=== PATIENT | female | born 1935 | race Caucasian/White ===

== ENCOUNTER 2018-12-31 18:05 | Inpatient (IN) | payer MEDICARE ==
[~2018-12-31] VITALS: Ht 154.9 cm; Wt 46.3 kg
[2018-12-31] MEDS ORDERED: ASPIRIN81 MG PO (18:10)
[2018-12-31] MEDS ORDERED: AMIODARONE HCL200 MG PO (18:10)
[2018-12-31] MEDS ORDERED: FLUTICASONE PRO16 GM NASAL (18:11)
[2018-12-31] MEDS ORDERED: HYDROXYZINE HCL50 MG PO ×2 (18:12→21:55)
[2018-12-31] MEDS ORDERED: LASIX40 MG PO (18:12)
[2018-12-31] MEDS ORDERED: ELIQUIS2.5 MG PO (18:13)
[2018-12-31] MEDS ORDERED: K-DUR20 MEQ PO (18:13)
[2018-12-31] MEDS ORDERED: CATAPRES0.1 MG PO (18:14)
[2018-12-31] MEDS ORDERED: ALBUTEROL SULF8.5 GM INH (18:15)
[2018-12-31 19:23] VITALS: BP 158/73
[2018-12-31 19:26] LABS: APPEARANCE HAZY (CLEAR); BILIRUBIN NEGATIVE (NEGATIVE); COLOR YELLOW (YELLOW); GLUCOSE NEGATIVE (NEGATIVE); KETONE NEGATIVE (NEGATIVE); NITRITE POSITIVE (NEGATIVE); PROTEIN TRACE mg/dL (NEGATIVE); UROBILINOGEN NORMAL (NORMAL)
[2018-12-31 19:32] LABS: WHITE CELLS - URINE 0-5 /hpf (NEGATIVE)
[2018-12-31 19:33] LABS: BACTERIA FEW /hpf (NEGATIVE); EPITHELIAL CELLS NSEEN /hpf (0-5)
[2018-12-31 19:35] LABS: CKMB 4.5 U/L (0.0-3.6); CREATINE KINASE 282 UL (21-215)
[2018-12-31 19:41] LABS: TROPONIN-I 0.102 ng/mL (0.000-0.060)
--- NOTE | 2018-12-31 19:48 | NUR ---
CRITICAL TROPONIN .102 PER LAB. PREVIOUS TROPONIN .110 @ 5912 TODAY FROM [facility]
--- NOTE | 2018-12-31 20:53 | NUR ---
PT ARRIVED VIA [facility] FROM ER. R SIDE FLACCID. CONTRACTURE NOTED TO R ARM. STAT LOCK PLACED ON GUEVARA. PT ANSWERS YES/NO QUESTION. CALL LIGHT WITHIN REACH.
[2018-12-31 22:01] VITALS: BP 158/73; BMI 19.3
--- NOTE | 2018-12-31 23:24 | NUR ---
ADMISSION ASSESSMENT, HISTORY AND HOME MED LIST COMPLETED BY 2230 HRS. IV TO R HAND WITH NS AT 125CC/HR. IV PATENT. IV TO L WRIST SL. PT ALERT, ABLE TO ANSWER YES/NO QUESTIONS. BRUISE NOTED TO R SHOULDER AND R PELVIS. R ARM CONTRACTURED. MINIMAL MOVEMENT TO R LEG. GUEVARA DRAINING YELLOW URINE. SR PER CM HR 67. VSS. O2 1LNC. LUNGS DIMINISHED IN BASES BILAT. ABD SOFT WITH ACTIVE BS NOTED. PT CURRENTLY RESTING WTIH EYES CLOSED. RESP EVEN AND REGULAR. SR UP X2, CALL LIGHT WITHIN REACH AND BED ALARM ON.
[2019-01-01] VITALS: BP 113/58
--- NOTE | 2019-01-01 00:39 | NUR ---
SCD'S PLACED ON BILAT LOWER EXTREMITIES. RATIONALE FOR SCD'S EXPLAINED TO PT. PT NODDED YES THAT SHE UNDERSTOOD. REPOSITIONED IN BED FOR COMFORT. SR U[X3,CALL LIGHT WITHIN REACH AND BED ALARM ON.
--- NOTE | 2019-01-01 01:24 | NUR ---
PT RESTING WITH EYES CLOSED. RESP EVEN AND REGULAR. SR UP X2, CALL LIGHT WITHIN REACH AND BED ALARM ON.
--- NOTE | 2019-01-01 03:19 | NUR ---
PT RESTING WITH EYES CLOSED. RESP EVEN AND REGULAR. SR UP X2, CALL LIGHT WITHIN REACH AND BED ALARM ON.
[2019-01-01 04:00] VITALS: BP 137/71
--- NOTE | 2019-01-01 04:10 | NUR ---
PT SPILLED HER WATER IN THE BED. BED LINENS CHANGED. PT TOLERATED ACTIVITY WELL. SR UP X2, CALL LIGHT WITHIN REACH AND BED AALRM ON.
[2019-01-01 05:33] LABS: BASOPHILS 0.8 % (0-2); EOSINOPHILS 2.2 % (0-7); HEMATOCRIT 43.9 % (36.0-48.0); HEMOGLOBIN 13.5 g/dL (12-16); IMMATURE GRANULOCYTES 0.3 % (0-5); LYMPHOCYTES 15.4 % (15-50); MCH 28.5 pg (26.0-34.0); MCHC 30.8 g/dL (31.0-37.0); MCV 92.8 fL (80.0-100.0); MEAN PLATELET VOLUME 10.5 fL (7.4-10.4); MONOCYTES 10.5 % (2-11); NEUTROPHILS 70.8 % (40-80); PLATELET COUNT 328 10x3/uL (130-400); RBC 4.73 10x6/uL (4.00-5.40); RDW 15.8 % (11.5-14.5); WBC 9.9 10x3/uL (4.8-10.8)
[2019-01-01 06:08] LABS: ALBUMIN 2.6 g/dL (3.4-5.0); ALKALINE PHOSPHATASE 80 U/L (46-116); ALT (SGPT) 19 U/L (10-68); BILIRUBIN - TOTAL 0.64 mg/dL (0.2-1.3); CALC OSMOLALITY 294 mosm/kg (275-300); CALCIUM 8.4 mg/dL (8.5-10.1); CHLORIDE - SERUM 112 mmol/L (98-107); CKMB 5.1 U/L (0.0-3.6); CREATINE KINASE 239 UL (21-215); CREATININE - SERUM 0.9 mg/dL (0.6-1.3); GLUCOSE 82 mg/dL (74-106); POTASSIUM - SERUM 3.9 mmol/L (3.5-5.1); PROTEIN - SERUM 5.9 g/dL (6.4-8.2); SODIUM 145 mmol/L (136-145); UREA NITROGEN 33 mg/dL (7-18); eGFR NON AFRICAN AMERICAN 63 mL/min (90-120)
[2019-01-01 06:10] LABS: TROPONIN-I 0.102 ng/mL (0.000-0.060)
--- NOTE | 2019-01-01 06:17 | NUR ---
VS THROUGHOUT NIGHT. SR PER CM. PT DENIED ANY DISCOMFORT. NEEDS MET; WILL CONTINUE TO MONITOR.
--- NOTE | 2019-01-01 07:00 | NUR ---
RECEIVED REPORT. BEDSIDE SHIFT REPORT COMPLETE. ASSUMED CARE OF PATIENT. RESTING IN BED WITH EYES OPEN. CALL LIGHT WITHIN REACH. PATIENT HAS REMOVED SCDs AND STAT LOCK. GUEVARA CATHETER PATENT, ADMITTED WITH GUEVARA FROM [place]. NO DISTRESS. PATIENT STATES SHE IS NOT PULLING OR REMOVING ITEMS. NO DISTRESS. NPO UNTIL CARDIOLOGY HAS EVALUATED PATIENT.
[2019-01-01 09:00] VITALS: BP 121/68
--- NOTE | 2019-01-01 09:00 | NUR ---
RESTING IN BED, CALL LIGHT WITHIN REACH. COMPLETE BED CHANGE PROVIDED. TURNED AND REPOSITIONED. NO DISTRESS.
--- NOTE | 2019-01-01 11:59 | NUR ---
PERSON TO NOTIFY - RANI TORRES IS PATIENTS DAUGHTER. SHE LIVES IN [facility]. [phone]. RANI CALLED BECAUSE SHE COULD NOT GET HER BROTHER OR SISTER, WHICH ARE LISTED ON THE FACESHEET. SHE STATES THAT HER SISTER HAS A LEARNING DISABILITY AND DOES NOT TURN HER PHONE ON MOST OF THE TIME. THANKED RANI FOR CALLING AND UPDATE GIVEN TO RANI AFTER OBTAINING VERBAL CONSENT FROM PATIENT.
[2019-01-01 12:00] VITALS: BP 118/54
--- NOTE | 2019-01-01 12:50 | NUR ---
PERSON TO ALSO NOTIFY, LOUIS DOYLE, PATIENT SON - [phone].
--- NOTE | 2019-01-01 15:04 | NUR ---
3RD COMPLETE BED CHANGE THIS SHIFT COMPLETED AT THIS TIME. PATIENT RESTING IN BED WITH EYES OPEN, RESP EVEN AND UNLABORED. NO DISTRESS.
--- NOTE | 2019-01-01 17:53 | NUR ---
PATIENT FOUND WITH WHOLE MOUTH STUFF FULL OF HAMBERGER AND HAMBER BUN PARTIALLY CHEWED. AMOUNT ROSA OUT OF PATIENT MOUTH COMPLETELY OVER FILLED THIS WRITERS CUPPED PALM OF HAND. INFORMED CHARGE NURSE THAT PATIENT CANNOT NOT BE LEFT UNATTENDED AT MEALS, RISK OF ASPRIATION OR CHOKING. THIS GOLF TECHNICIAN ASSISTED PATIENT WITH PM MEAL AND NOW PATIENT DOES NOT WANT TO EAT THE SMALL PIECES OF FOOD THAT HAVE BEEN PREPARED AND CUT FOR HER. COMMINICATION IS CHALLENGING DUE TO S/P CVA. PATIENT DOES NOT PROVIDE ANSWERS TO MOST QUESTIONS ASKED, JUST LOOKS AT THIS GOLF TECHNICIAN AND THE QUESTIONS THAT SHE DOES ANSWER AT TIMES ARE YES AND NO. SPEECH EVALUATION ORDERED.
[2019-01-01 18:11] VITALS: BP 146/78
--- NOTE | 2019-01-01 19:22 | NUR ---
INITIAL ROUNDS COMPLETED. NO DISTRESS NOTED. SR UP X2, CALL LIGHT WITHIN REACH AND BED ALARM ON.
[2019-01-01 20:00] VITALS: BP 155/83
--- NOTE | 2019-01-01 22:49 | NUR ---
ASSESSMENT COMPLETED AT 1950 HRS. VSS. SR PER SM HR 76. PT ALERT, ABLE TO ANSWER YES/NO QUESTIONS ONLY. POOR ATENTION SPAN. FOLLOWS COMMANDS INTERMITTENTLY. IV TO L WRIST OCCLUSED. DC'D WITH CATHETER INTACT. IV TO R HAND WITH NS AT 75CC/HR. IV PATENT. PT WILL NOT WEAR O2. SCD'S PLACED BACK ON PT. R ARM CONTRACTURED. GROSS MOVEMENT OF R LEG ONLY. BRUISE NOTED TO R SHOULDER AND R PELVIC AREA. SCD'S OFF. PLACED BACK ON PT. GUEVARA DRAINING YELLOW URINE. STAT LOCK OFF. NEW STAT LOCK PLACED. BACK IN ROOM FOR PM MEDS. SCD'S OFF AND SAT LOCK REMOVED BY PT. PM MEDS GIVEN CRUSHED IN CHOCOLATE PUDDING. PT PLACED IN HIGH FOWLERS AND MEDS GIVEN IN SMALL BITES. PT SWALLOWED WELL. 240CC OF APPLE JUICE GIVEN VIA STRAW. PT SWALLOWED WITHOUT DIFFICULTY. REPOSITONED IN BED FOR COMFORT. SR UP X2, CALL LIGHT WITHIN REACH AND BED ALARM ON.
[2019-01-02] VITALS: BP 121/61
--- NOTE | 2019-01-02 00:37 | NUR ---
PT TOOK CLOTHES OFF. GOWN PLACED BACK ON PT. COVERED WITH SHEET AND BLANKET. CALL LIGHT WITHIN REACH AND DOOR OPEN.
--- NOTE | 2019-01-02 01:50 | NUR ---
PT REPOSITIONED IN BED FOR COMFORT. SR UP X2, CALL LIGHT WITHIN REACH.
--- NOTE | 2019-01-02 03:47 | NUR ---
PT REPOSITONED IN BED FOR COMFORT. PT DRANK APPROX 120CC OF WATER AT THAT TIME. SR UPX2, CALL LIGHT WITHIN REACH.
--- NOTE | 2019-01-02 03:57 | NUR ---
I have reviewed this patient and I concur with the Shift Assessment completed by the Licensed Practical Nurse today this shift.
[2019-01-02 04:00] VITALS: BP 149/79
--- NOTE | 2019-01-02 05:56 | NUR ---
VSS THROUGHOUT NIGHT. SR PER CM. PT DISROBED X4 DURING SHIFT. REPOSITIONED IN BED NUMEROUS TIMES. NEEDS MET; WILL CONTINUE TO MONITOR.
--- NOTE | 2019-01-02 07:34 | NUR ---
REPORT RECEIVED FROM ENGLISH FACULTY MEMBER AND PATIENT CARE ASSUMED. PATIENT LAYING IN BED WITH EYES CLOSED AND BREATHING EVENLY. VSS. WILL CONTINUE WITH PLAN OF CARE. SR UP X 2 BED IN LOW POSITION AND CALL LIGHT IN REACH.
--- NOTE | 2019-01-02 09:29 | CN ---
PATIENT NAME:SALIMA DAS MEDICAL RECORD: [id number] : 31 LOCATION:. D.2125 ADMIT DATE: 12/31/18 ACCOUNT: [id number] CONSULTING PHYSICIAN: HELEN SANTAMAIRA MD REFERRING PHYSICIAN: EVELYNE RUGGIERO MD DATE OF CONSULTATION: 01/01/2019 CARDIOLOGY CONSULTATION DIAGNOSES: 1. Syncope. 2. Paroxysmal atrial fibrillation. 3. Non-Q-wave myocardial infarction, elevated troponin. 4. Past history of CVA. HISTORY OF PRESENT ILLNESS: Mrs. Das had an unwitnessed fall. She was found down at her care home. She was transferred to [facility] where she had an episode of a tachycardia at 150 beats per minute. This was associated with hypotension requiring emergent cardioversion. She has not had any further dysrhythmias. Her troponin is mildly elevated. She is nonverbal due to a past CVA, making her history difficult. It appears she does have a history of dysrhythmia and atrial fibrillation that she is on amiodarone 200 mg every day as well as Eliquis. She denies any chest pain or chest discomfort at this time. She has not had her amiodarone since yesterday. PHYSICAL EXAMINATION: CONSTITUTIONAL/GENERAL APPEARANCE: Well nourished, well developed, appears stated age. EYES: Lids and conjunctivae noninjected. No discharge. No pallor. ENT: Lips within normal limit. No cyanosis. No pallor. NECK: Carotid arteries, bilateral normal upstroke. No bruits. No thrills. No jugular venous pressure or distention. CERVICAL LYMPH NODES: Nontender. Nonenlarged. THYROID: Not enlarged. No nodules. CARDIOVASCULAR: Precordial exam, nondisplaced. No heaves or pericardial thrills. Rate and rhythm, regular. Heart sounds, normal S1, normal S2. No S3, no gallop, no rub. Systolic murmur, not heard. Diastolic murmur, not heard. RESPIRATORY: Respiratory effort, unlabored. Normal curvature. No thoracic deformity. No chest wall tenderness. Percussion, resonant. Auscultation, clear. No wheezes, no rales, no rhonchi. ABDOMEN: Soft, nondistended, nontender. No abdominal pain, no vomiting and normal appetite. MUSCULOSKELETAL: No joint tenderness, normal gait, normal tone. SKIN: Warm and dry. OVERALL IMPRESSION: Tachyarrhythmia most likely 2:1 atrial flutter, this was 150 beats per minute, most likely this is the etiology of her fall and syncope as well. We will increase the amiodarone to 200 mg b.i.d., get an echocardiogram to evaluate her overall LV function. At this time, no other cardiac workup or treatment will be necessary. TRANSINT:[id number] Voice Confirmation ID: [id number] DOCUMENT ID: [id number] CONSULT REPORT [id number] SALIMA DAS, HELEN GIBSON at 0929 CC: [id number] DICTATION DATE: 01/01/19 1038 CAPITAL CAMPAIGN FUNDRAISER: 01/01/19 1054 ADM IN [facility] [address] [place] [address]
[2019-01-02 11:13] VITALS: BP 129/60
[2019-01-02 12:26] LABS: ANION GAP 11.7 mmol/L (8-16); CALCIUM 8.5 mg/dL (8.5-10.1); CARBON DIOXIDE 28.9 mmol/L (21.0-32.0); POTASSIUM - SERUM 3.6 mmol/L (3.5-5.1)
[2019-01-02 12:29] LABS: BASOPHILS 0.8 % (0-2); EOSINOPHILS 2.1 % (0-7); HEMOGLOBIN 14.7 g/dL (12-16); IMMATURE GRANULOCYTES 0.2 % (0-5); LYMPHOCYTES 16.1 % (15-50); MCH 28.9 pg (26.0-34.0); MEAN PLATELET VOLUME 10.2 fL (7.4-10.4); MONOCYTES 6.8 % (2-11); PLATELET COUNT 330 10x3/uL (130-400); RBC 5.09 10x6/uL (4.00-5.40); RDW 15.1 % (11.5-14.5); WBC 9.2 10x3/uL (4.8-10.8)
[2019-01-02 12:46] LABS: MCV 90.4 fL (80.0-100.0)
--- NOTE | 2019-01-02 14:03 | NUR ---
PATIENT IS UNCHANGED. PATIENT LAYING IN BED WITH HOB 20 DEGREES. PATIENT IS AWAKE. PATIENT IS CALM AND BREATHING EVENLY . VSS. PATIENT APPEARS IN NO ACUTE DISTRESS. WILL CONTINUE TO MONITOR. SR UP X 2 BED IN LOW POSITION AND CALL LIGHT IN REACH.
[2019-01-02 14:57] VITALS: BP 155/73
[2019-01-02 15:01] VITALS: Ht 154.9 cm; Wt 46.3 kg
[2019-01-02 17:33] VITALS: BP 129/80
--- NOTE | 2019-01-02 19:59 | NUR ---
RECEIVED BEDSIDE REPORT. PATIENT IS RESTING COMFORTABLY IN BED. RESPIRATIONS ARE EVEN AND UNLABORED. NO S/S OF DISTRESS. NO C/O PAIN. CALL LIGHT WITHIN REACH. WILL CPOC.
[2019-01-02 20:34] VITALS: BP 152/87
--- NOTE | 2019-01-02 21:45 | NUR ---
PT APPEARS CONFUSED. HELP ADJUST PT IN BED. PROVIDED PT WITH FRESH LINEN. EMPTIED PT'S GUEVARA, WITH OUTPUT [id number]. PT HAVING HARD TIME SWALLOWING. MEDS CRUSHED AND ADMINITERED. PT DENIES ANY FURTHER NEEDS AT THIS TIME. CL IN REACH, BED IN LOW, SR UP X2, BED ALARM ON.
[2019-01-03 01:10] VITALS: BP 132/79
[2019-01-03 05:58] VITALS: BP 131/76
--- NOTE | 2019-01-03 07:26 | NUR ---
REPORT RECEIVED FROM CORRECTIONAL CASEWORK SPECIALIST AND PATIENT CARE ASSUMED.PATIENT LAYING IN BED ON BACK AWAKE . PATIENT IS ASPHASIC. PATIENT IS STABLE AND UNCHANGED AND VSS. WILL CONTINUE WITH PLAN OF CARE. SR UP X 2 BED IN LOW POSITION AND CALL LIGHT IN REACH.
[2019-01-03 09:04] VITALS: BP 120/70
--- NOTE | 2019-01-03 10:09 | NUR ---
PATIENT AWAKE AND APHAGIC LAYING IN RT SIDE. PER GAS APPLIANCE INSTALLER, PATIENT HAS HAD BATH AND COMPLETE LINEN CHANGE. SON CALLED AND THIS NURSE ANSWERED QUESTIONS TO SON SATISFACTION. WILL CONTINUE TO MONITOR PATIENT. SR UP X 2 BED IN LOW POSITION AND CALL LIGHT IN REACH.
[2019-01-03 12:25] VITALS: BP 145/86
[2019-01-03] MEDS ORDERED: OMNICEF300 MG PO (12:59)
--- NOTE | 2019-01-03 14:18 | MORECARE ---
CASE MANAGEMENT DISCHARGE SUMMARY PATIENT: SALIMA DAS UNIT: [id number] ADM DATE: 12/31/18 AGE: 83 : 33 SEX: F ROOM/BED: D.0638 AUTHOR: MIK,DOC PHYSICIAN: REFERRING PHYSICIAN: EVELYNE RUGGIERO MD DATE OF SERVICE: 01/03/19 Discharge Plan Patient Name: SALIMA DAS Facility: [facility]:[place] : 1935 Planned Disposition: Nursing Facility [facility] Cert Anticipated Discharge Date: 01/03/19 Discharge Date: Expected LOS: 3 Initial Reviewer: [id number] Initial Review Date: 01/03/2019 Generated: 01/03/19 3:17 pm DCPIA - Discharge Planning Initial Assessment Updated by PALMA: Clive Reese on 01/03/19 2:12 pm * Is the patient Alert and Oriented? Yes * How many steps to enter\exit or inside your home? NONE * PCP DR. FRASER * [facility] * Preadmission Environment [facility] * Facility Name [facility] * ADLs Total Dependent * Equipment Other * Other Equipment ALL MEDICAL EQUIPMENT PROVIDED BY FACILITY * List name and contact numbers for known caregivers / representatives who currently or will assist patient after discharge: IMELDA CALVERT, * Verbal permission to speak to the caregivers and representatives has been obtained from the patient. N/A * Community resources currently utilized None * Please name any agencies selected above. NONE * Additional services required to return to the preadmission environment? No * Can the patient safely return to the preadmission environment? Yes * Has this patient been hospitalized within the prior 30 days at any hospital? No External Providers External Provider: [facility] [place] Next Contact Date: 01/03/2019 Service Request Date: Service Type: Resolution: Reviewer: Comments: Coverage Notice Reviewer: [id number] - Clive Reese Notice Issued Date-Time: 01/03/2019 9:50 Notice Type: IM Discharge Notice Notice Delivered To: Patient Relationship to Patient: Tin Roofer Name: Delivery Method: HAND - Hand Delivered Claudia Days: Prior Verbal Notification: Recipient Understood Notice: Yes Recipient Signature: Med Rec Note Co-signed by Attending: Coverage Notice Comment: REFUSED TO SIGN, REPORTS ABILITY TO SIGN Reviewer: [id number] Jennifer Reese Notice Issued Date-Time: 01/03/2019 9:50 Notice Type: Patient Choice Letter Notice Delivered To: Patient Relationship to Patient: Tin Roofer Name: Delivery Method: HAND - Hand Delivered Claudia Days: Prior Verbal Notification: Recipient Understood Notice: Yes Recipient Signature: Med Rec Note Co-signed by Attending: Coverage Notice Comment: REFUSED TO SIGN CHOICE FOR [facility]. REPORTS WANTING TO RETURN THERE. Patient Name: SALIMA DAS Page [phone] at 1418 All edits/amendments must be made on the electronic document DICTATION DATE: 01/03/191416 SECURITY PUBLIC SAFETY OFFICER: GIOVANNA 01/03/191416 RPT#: [id number] DC DATE: STATUS: ADM IN [facility] [address] [place] [address] END OF REPORT
--- NOTE | 2019-01-03 14:27 | MORECARE ---
CASE MANAGEMENT DISCHARGE SUMMARY PATIENT: SALIMA DAS UNIT: [id number] ADM DATE: 12/31/18 AGE: 83 : 33 SEX: F ROOM/BED: D.5920 AUTHOR: MIK,DOC PHYSICIAN: REFERRING PHYSICIAN: EVELYNE RUGGIERO MD DATE OF SERVICE: 01/03/19 Discharge Plan Patient Name: SALIMA DAS Facility: [facility]:[place] : 1935 Planned Disposition: Nursing Facility [facility] Cert Anticipated Discharge Date: 01/03/19 Discharge Date: Expected LOS: 3 Initial Reviewer: [email or web address] Initial Review Date: 01/03/2019 Generated: 01/03/19 3:26 pm Comments DCP- Discharge Planning Updated by [email or web address]: Clive Reese on 01/03/19 1:[address] Patient Name: SALIMA DAS Encounter No: [id number] : 1935 Primary Insurance: MEDICARE A & B Anticipated DC Date: 01-03-2019 Planned Disposition: Nursing Facility [facility] Cert External Planned Provider: [facility] DCP follow-up note: CM SPOKE TO PT IN ROOM REGARDING DISCHARGE PLANNING AND NEEDS. PT REPORTS LIVING AT [facility]. PT DOES NOT KNOW HOW LONG SHE HAS BEEN THERE STATING "LONG TIME". PT STATES WILL RETURN THERE AT DISCHARGE. PT STATES SHE DOES NOT GET OUT OF BED AT THE PRISON. PT REPORTS THERE IS NO FAMIILY TO INFORM OF HER RETURN. CM PROVIDED AND DISCUSSED IMPORTANT MESSAGE FROM MEDICARE AND [facility] FOR [facility] LETTER. PT STATES SHE WILL SIGN BOTH AND WHEN PRESENTED WITH THEM FOR SIGNAUTURE SHE DID NOT MOVE. PT STATES "CAN'T". CM CALLED [facility], LISTED SON AND EMERGENCY CONTACT, , THERE WAS NO ANSWER AND NO VOICE MAIL SET UP. THERE WERE NO OTHER EMERGENCY CONTACT NUMBERS TO CALL. CM RECEIVED DISCHARGE ORDER, NOTIFIED [facility], . KRISTEN INFORMED CM THAT PT WILL RETURN TO MEDICARE SKILLED BED. CM FAXED REFERRAL AND DISCHARGE INFORMATION TO [facility] AT [phone]. NURSE REPORT TO BE CALLED TO [facility] AT [phone]. PT TO TRANSPORT VIA AMBULANCE. Clive Reese, CASE MANAGEMENT DCPIA - Discharge Planning Initial Assessment Updated by [id number]: Clive Reese on 01/03/19 2:12 pm * Is the patient Alert and Oriented? Yes * How many steps to enter\\exit or inside your home? NONE * PCP DR. FRASER * [facility] * Preadmission Environment [facility] * Facility Name [facility] * ADLs Total Dependent * Equipment Other * Other Equipment ALL MEDICAL EQUIPMENT PROVIDED BY FACILITY * List name and contact numbers for known caregivers / representatives who currently or will assist patient after discharge: IMELDA CALVERT, * Verbal permission to speak to the caregivers and representatives has been obtained from the patient. N/A * Community resources currently utilized None * Please name any agencies selected above. NONE * Additional services required to return to the preadmission environment? No * Can the patient safely return to the preadmission environment? Yes * Has this patient been hospitalized within the prior 30 days at any hospital? No Coverage Notice Reviewer: [id number] Jennifer Reese Notice Issued Date-Time: 01/03/2019 9:50 Notice Type: IM Discharge Notice Notice Delivered To: Patient Relationship to Patient: Academic Affairs Vice President Name: Delivery Method: HAND - Hand Delivered Claudia Days: Prior Verbal Notification: Recipient Understood Notice: Yes Recipient Signature: Med Rec Note Co-signed by Attending: Coverage Notice Comment: REFUSED TO SIGN, REPORTS ABILITY TO SIGN Reviewer: [id number] Reese Notice Issued Date-Time: 01/03/2019 9:50 Notice Type: Patient Choice Letter Notice Delivered To: Patient Relationship to Patient: Academic Affairs Vice President Name: Delivery Method: HAND - Hand Delivered Claudia Days: Prior Verbal Notification: Recipient Understood Notice: Yes Recipient Signature: Med Rec Note Co-signed by Attending: Coverage Notice Comment: REFUSED TO SIGN CHOICE FOR [facility]. REPORTS WANTING TO RETURN THERE. Last DP export: 01/03/19 1:18 Patient Name: SALIMA DAS Page [phone] at 1427 All edits/amendments must be made on the electronic document DICTATION DATE: 01/03/19 142 AIRPLANE FIRST OFFICER: GIOVANNA 01/03/19 142 RPT#: [id number] DC DATE: STATUS: ADM IN [facility] [address] [place] [place] [address] END OF REPORT
--- NOTE | 2019-01-03 15:13 | NUR ---
ORDER RECEIVED FOR DC. WRITTEN AND VERBAL INSTRUCTIONS GIVEN TO PATIENT . PATIENT UNABLE TO VERBALIZE UNDERSTANDING AND PATIENT UNABLE TO SIGN PAPERWORK. REPORT CALLED TO [facility] AND SPOKE WITH TIAN LEUNG. CONTACTED [facility] AND SHOULD BE HERE IN ABOUT ONE HOUR. PATIENT IS STABLE AND VSS. WILL CONTINUE TO MONITOR. SR UP X 2 BED IN LOW POSITION AND CALL LIGHT IN REACH.
--- NOTE | 2019-01-03 15:17 | NUR ---
PATIENT HAD LARGE BM. PATIENT HAS BM ON HER HANDS AND IS SPREADING FECAL MATERIAL ON HERSELF AND THE BED. PATIENT CLEANED THOROUGHLY AND COMPLETE LINEN CHANGE DONE. IV DCD WITHOUT DIFFICULTY WITH ENTIRE CATHETER INTACT. AWAITING AMBULANCE FOR TRANSFER. SR UP X 2 BED IN LOW POSITION AND CALL LIGHT IN REACH.
--- NOTE | 2019-01-03 16:37 | NUR ---
PATIENT IS STABLE AND VSS. [facility] HERE FOR TRANSPORT. PATIENT TRANSFERRED TO [facility] EASILY AND PATIENT TO AMBULANCE VIA AMBULANCE PERSONNEL .
--- NOTE | 2019-01-09 17:02 | EC ---
PATIENT:SALIMA DAS DATE OF SERVICE: 12/31/18 SEX: F MEDICAL RECORD: [id number] DATE OF : [birth year] LOCATION:D.M2 D.212 AGE OF PATIENT: 83 ADMISSION DATE: 12/31/18 REFERRING PHYSICIAN: INTERPRETING PHYSICIAN: HELEN ACEVES MD ECHOCARDIOGRAM REPORT ECHO CHARGES 4 ECHO COMPLETE Date: 01/01/19 CLINICAL DIAGNOSIS: SVT ECHOCARDIOGRAPHIC MEASUREMENTS (adult normal given) AC root (d.<3.7cm) 3.2 cm LV Septum d (<1.2 cm> 1.4 cm Valve Excursion 0.4 cm LV Septum (systole) 1.9 cm Left Atria (s.<4.0cm> 2.5 cm LVPW d(<1.2cm) 1.4 cm RV (d.<2.3cm) 1.7 cm LVPW (sytole) 1.9 cm LV diastole(<5.6CM) 4.0 cm MV E-F(>70mm/sec) cm LV systole 1.8 cm LVOT Diameter 1.7 cm MV exc.(>10mm) cm Est.ejection fraction (50-75%) % DOPPLER: LVIT cm/sec A 118 cm/sec E 66.0 cm/sec LA cm/sec RVSP 42.0 mmHg LVOT 109 cm/sec AOP1/2T 608.0m/s Asc. Ao 461 cm/sec RVOT 92.0 cm/sec RA cm/sec PA 117 cm/sec AV Gradient Peak 85.0 mmHg AV Mean 44.0 mmHg AV Area 0.6 cm MV Gradient Peak 5.6 mmHg MV Mean 2.0 mmHg MV Area cm COMMENTS: Field Rep: 1 DESI PORTILLOOE Industrial Conveyor Belt Repairer: 1 Dr. Aceves TAPE# PACS Pericardial Effusion N DATE OF SERVICE: ECHOCARDIOGRAM FINDINGS: 1. Left ventricular chamber size is within normal limits. Left ventricular systolic function is normal at 55%. 2. Left atrium, right atrium and right ventricular chamber sizes are within normal limits. 3. Valvular structures; aortic valve demonstrates severe calcific aortic ECHOCARDIOGRAM REPORT [id number] SALIMA DAS stenosis, valve area calculates to 0.6 cm-squared. There is gradient of 85-mm across the valve. The remaining valvular structures have normal structure and motion. 4. Doppler interrogation elsewise reveals moderate aortic insufficiency, mild mitral regurgitation, mild tricuspid regurgitation, no other valvular insufficiency or stenosis. Pulmonary systolic pressure is estimated at 42 mmHg. TRANSINT:[id number] Voice Confirmation ID: [id number] DOCUMENT ID: [id number] HELEN ACEVES MD at 1702 CC: [id number] DICTATION DATE: 01/02/19 1056 SUPERVISOR MOLDING: 01/02/19 1111 DIS IN 01/03/19 [place] [address] [place] [address]
== END 2019-01-03 16:39 | DRG 281 ==
LOC: D.ER 18:05 → D.M2 19:26
PROVIDERS: Family Medicine; Family Medicine Adult Medicine; ADMIT Internal Medicine Nephrology; ATTEND Internal Medicine Nephrology
DX: I21.4 Non-ST elevation (NSTEMI) myocardial infarction (principal); N39.0 Urinary tract infection, site not specified; N17.9 Acute kidney failure, unspecified; E44.0 Moderate protein-calorie malnutrition; Z68.1 Body mass index [BMI] 19.9 or less, adult; I50.32 Chronic diastolic (congestive) heart failure; I48.92 Unspecified atrial flutter; I48.0 Paroxysmal atrial fibrillation; W19.XXXA Unspecified fall, initial encounter; I11.0 Hypertensive heart disease with heart failure; B96.1 Klebsiella pneumoniae [K. pneumoniae] as the cause of diseases classified elsewhere; F32.9 Major depressive disorder, single episode, unspecified; R55 Syncope and collapse; E86.0 Dehydration; Z86.73 Personal history of transient ischemic attack (TIA), and cerebral infarction without residual deficits